=== PATIENT | male | born 1960 | race Caucasian/White ===

== ENCOUNTER 2021-07-16 15:03 | Emergency (ER) | payer MEDICARE, OTHER ==
[2021-07-16] MEDS ORDERED: Oxymetazoline 0.05% Nasal Spray 30 ML Bottle NAS ONE (15:28)
== END 2021-07-16 16:24 | disposition home or self-care (01) ==
LOC: JD.ED 15:03 → SUPCPDRO 15:03 → JD.ED 16:24
DX: R04.0 Epistaxis (principal); E78.00 Pure hypercholesterolemia, unspecified; I10 Essential (primary) hypertension; Z79.899 Other long term (current) drug therapy; Z79.82 Long term (current) use of aspirin; Z79.4 Long term (current) use of insulin; Z79.01 Long term (current) use of anticoagulants
CPT/HCPCS: 36415; 80048; 85025; 85610; 99283; A9270

== ENCOUNTER 2021-07-20 20:09 | Inpatient (IN) | payer MEDICARE, OTHER ==
[2021-07-20] MEDS ORDERED: Furosemide 40 MG/4 ML VIAL IVPUSH ONE (23:49)
[2021-07-21] MEDS: Insulin Lispro 100 Unit/ML 3 ML KwikPen SUBCUT SCH ×4 (08:03→21:07)
[2021-07-21] MEDS: Potassium Chloride 20 MEQ Tab.ER PO SCH ×2 (08:23→21:08)
[2021-07-21] MEDS: Tamsulosin 0.4 MG Cap.ER PO SCH (08:23)
[2021-07-21] MEDS: Aspirin 81 MG Tab.EC PO SCH (08:23)
[2021-07-21] MEDS ORDERED: Ondansetron 4 MG/2 ML SDV IV PRN (08:28)
[2021-07-21] MEDS ORDERED: Polyethylene Glycol 3350 Powder 17 GM Packet PO PRN (08:28)
[2021-07-21] MEDS ORDERED: Potassium Chloride 20 MEQ Tab.ER PO SCH (09:00)
[2021-07-21] MEDS ORDERED: Carvedilol 12.5 MG Tab PO SCH (09:00)
[2021-07-21] MEDS ORDERED: Furosemide 40 MG/4 ML VIAL IVPUSH ONE (10:46)
[2021-07-21] MEDS ORDERED: Benzonatate 100 MG Cap PO PRN (11:02)
[2021-07-21] MEDS ORDERED: Furosemide 40 MG/4 ML VIAL IVPUSH SCH (14:00)
[2021-07-21] MEDS ORDERED: Warfarin 5 MG Tab PO SCH (18:00)
[2021-07-21] MEDS: Albumin 25% 12.5 GM in Premix Bag 1 BAG IV SCH ×2 (18:28→19:44)
[2021-07-21] MEDS: atorvaSTATin 40 MG Tab PO SCH (21:08)
[2021-07-21] MEDS: Carvedilol 6.25 MG Tab PO SCH (21:09)
[2021-07-22] MEDS ORDERED: Furosemide 40 MG/4 ML VIAL IVPUSH SCH ×2 (06:00→09:00)
[2021-07-22] MEDS: Insulin Lispro 100 Unit/ML 3 ML KwikPen SUBCUT SCH ×4 (07:18→21:17)
[2021-07-22] MEDS: Carvedilol 6.25 MG Tab PO SCH ×2 (08:09→20:56)
[2021-07-22] MEDS: Pantoprazole 40 MG Tab.CR PO SCH (08:09)
[2021-07-22] MEDS: Potassium Chloride 20 MEQ Tab.ER PO SCH ×2 (08:09→20:57)
[2021-07-22] MEDS: Tamsulosin 0.4 MG Cap.ER PO SCH (08:09)
[2021-07-22] MEDS: Aspirin 81 MG Tab.EC PO SCH (08:09)
[2021-07-22 11:35] LABS: CORONAVIRUS COVID-19 NAA NEGATIVE (NEGATIVE)
[2021-07-22] MEDS ORDERED: Lidocaine 1% 10 ML MDV ONE (13:49)
[2021-07-22] MEDS: Acetaminophen 325 MG Tab PO PRN (17:16)
[2021-07-22] MEDS ORDERED: Warfarin 5 MG Tab PO SCH (18:00)
[2021-07-22 18:42] LABS: BORDETELLA PARAPERT IS1001 Not Detected (Not Detected)
[2021-07-22] MEDS: atorvaSTATin 40 MG Tab PO SCH (20:52)
[2021-07-22] MEDS: Enoxaparin 150 MG/1 ML Syringe SUBCUT SCH (20:57)
[2021-07-23] MEDS: Acetaminophen 325 MG Tab PO PRN ×2 (03:22→14:18)
[2021-07-23] MEDS: Insulin Lispro 100 Unit/ML 3 ML KwikPen SUBCUT SCH ×4 (07:36→21:33)
[2021-07-23] MEDS ORDERED: guaiFENesin 600 MG Tab.ER PO ONE (08:11)
[2021-07-23] MEDS: Aspirin 81 MG Tab.EC PO SCH (08:32)
[2021-07-23] MEDS: Benzonatate 100 MG Cap PO SCH ×2 (08:32→20:51)
[2021-07-23] MEDS: Carvedilol 6.25 MG Tab PO SCH ×2 (08:32→20:53)
[2021-07-23] MEDS: Potassium Chloride 20 MEQ Tab.ER PO SCH ×2 (08:32→20:52)
[2021-07-23] MEDS: Pantoprazole 40 MG Tab.CR PO SCH (08:33)
[2021-07-23] MEDS: guaiFENesin/Dextromethorphan 100-10 MG/5 ML Soln 5 ML Cup PO PRN ×4 (08:33→22:00)
[2021-07-23] MEDS: Enoxaparin 150 MG/1 ML Syringe SUBCUT SCH ×2 (08:33→20:53)
[2021-07-23] MEDS: Tamsulosin 0.4 MG Cap.ER PO SCH (08:33)
[2021-07-23] MEDS ORDERED: Furosemide 40 MG/4 ML VIAL IVPUSH ONE (14:29)
[2021-07-23] MEDS: Doxycycline 100 MG Cap PO SCH ×2 (14:48→20:51)
[2021-07-23] MEDS: Cefdinir 300 MG Cap PO SCH ×2 (14:48→20:51)
[2021-07-23] MEDS ORDERED: Warfarin 2.5 MG Tab PO ONE (18:00)
[2021-07-23] MEDS ORDERED: Furosemide 40 MG/4 ML VIAL IVPUSH SCH (20:00)
[2021-07-23] MEDS: atorvaSTATin 40 MG Tab PO SCH (20:52)
[2021-07-23] MEDS: traZODone 50 MG Tab PO PRN (22:00)
[2021-07-23] MEDS ORDERED: methylPREDNISolone Sodium Succinate 40 MG/1 ML SDV IVPUSH ONE (23:02)
[2021-07-23] MEDS: Albuterol/Ipratropium 3.0-0.5 MG/3 ML Neb Soln NEB PRN (23:31)
[2021-07-24] MEDS: guaiFENesin/Dextromethorphan 100-10 MG/5 ML Soln 5 ML Cup PO PRN ×3 (05:28→21:31)
[2021-07-24] MEDS: Pantoprazole 40 MG Tab.CR PO SCH ×2 (05:31→06:36)
[2021-07-24] MEDS ORDERED: Furosemide 40 MG/4 ML VIAL IVPUSH SCH (06:00)
[2021-07-24] MEDS: Insulin Lispro 100 Unit/ML 3 ML KwikPen SUBCUT SCH ×4 (09:16→21:32)
[2021-07-24] MEDS: Carvedilol 6.25 MG Tab PO SCH ×2 (09:20→21:11)
[2021-07-24] MEDS: Aspirin 81 MG Tab.EC PO SCH (09:21)
[2021-07-24] MEDS: Potassium Chloride 20 MEQ Tab.ER PO SCH ×2 (09:21→21:11)
[2021-07-24] MEDS: Tamsulosin 0.4 MG Cap.ER PO SCH (09:21)
[2021-07-24] MEDS: Cefdinir 300 MG Cap PO SCH ×2 (09:22→21:11)
[2021-07-24] MEDS: Benzonatate 100 MG Cap PO SCH ×2 (09:22→21:31)
[2021-07-24] MEDS: Doxycycline 100 MG Cap PO SCH ×2 (09:22→21:11)
[2021-07-24] MEDS: Albuterol/Ipratropium 3.0-0.5 MG/3 ML Neb Soln NEB PRN ×3 (09:54→18:45)
[2021-07-24] MEDS: Enoxaparin 150 MG/1 ML Syringe SUBCUT SCH (10:00)
[2021-07-24] MEDS: Furosemide 40 MG/4 ML VIAL IVPUSH SCH (13:00)
[2021-07-24] MEDS ORDERED: Bumetanide 1 MG/4 ML MDV IVPUSH SCH (14:00)
[2021-07-24] MEDS ORDERED: Warfarin 2.5 MG Tab PO ONE (18:00)
[2021-07-24] MEDS: atorvaSTATin 40 MG Tab PO SCH (21:11)
[2021-07-24] MEDS: traZODone 50 MG Tab PO PRN (21:31)
[2021-07-25] MEDS: Albuterol/Ipratropium 3.0-0.5 MG/3 ML Neb Soln NEB PRN ×2 (00:23→09:58)
[2021-07-25] MEDS: Furosemide 40 MG/4 ML VIAL IVPUSH SCH ×2 (06:43→14:35)
[2021-07-25] MEDS: Pantoprazole 40 MG Tab.CR PO SCH (06:44)
[2021-07-25] MEDS: Cefdinir 300 MG Cap PO SCH (08:02)
[2021-07-25] MEDS: Doxycycline 100 MG Cap PO SCH (08:02)
[2021-07-25] MEDS: Aspirin 81 MG Tab.EC PO SCH (08:02)
[2021-07-25] MEDS: Insulin Lispro 100 Unit/ML 3 ML KwikPen SUBCUT SCH ×2 (08:02→11:22)
[2021-07-25] MEDS: Benzonatate 100 MG Cap PO SCH (08:02)
[2021-07-25] MEDS: Carvedilol 6.25 MG Tab PO SCH (08:03)
[2021-07-25] MEDS: Potassium Chloride 20 MEQ Tab.ER PO SCH (08:03)
[2021-07-25] MEDS: Tamsulosin 0.4 MG Cap.ER PO SCH (08:03)
[2021-07-25] MEDS ORDERED: Lidocaine 1% 10 ML MDV ONE (14:09)
[2021-07-25] MEDS ORDERED: Lidocaine 1% 10 ML MDV INJECT ONE (14:15)
[2021-07-25] MEDS ORDERED: Warfarin 2.5 MG Tab PO SCH (18:00)
[2021-07-27] MEDS ORDERED: Furosemide 40 MG/4 ML VIAL IVPUSH SCH (06:00)
== END 2021-07-25 14:55 | disposition home or self-care (01) | DRG 291 ==
LOC: JD.ED 20:09 → JD.MS 07-21 00:16 → INTOOBSV 07-21 00:16 → OBSVTOIN 07-22 07:16
PROVIDERS: ADMIT Hospitalist; ATTEND Hospitalist
PROC: 0W9G3ZZ Drainage of Peritoneal Cavity, Percutaneous Approach (ICD-10-PCS; principal; 2021-07-22)
DX: I50.9 Heart failure, unspecified (principal); R09.02 Hypoxemia; I11.0 Hypertensive heart disease with heart failure; I50.43 Acute on chronic combined systolic (congestive) and diastolic (congestive) heart failure; J96.21 Acute and chronic respiratory failure with hypoxia; R18.8 Other ascites; E11.9 Type 2 diabetes mellitus without complications; B34.8 Other viral infections of unspecified site; E78.00 Pure hypercholesterolemia, unspecified; Z20.822 Contact with and (suspected) exposure to COVID-19; E78.5 Hyperlipidemia, unspecified; I48.0 Paroxysmal atrial fibrillation; N42.9 Disorder of prostate, unspecified; K59.09 Other constipation; E11.69 Type 2 diabetes mellitus with other specified complication; G47.33 Obstructive sleep apnea (adult) (pediatric); R93.429 Abnormal radiologic findings on diagnostic imaging of unspecified kidney; I08.3 Combined rheumatic disorders of mitral, aortic and tricuspid valves; Z79.01 Long term (current) use of anticoagulants; Z95.1 Presence of aortocoronary bypass graft; Z79.4 Long term (current) use of insulin; Z99.81 Dependence on supplemental oxygen; Z98.890 Other specified postprocedural states; Z79.82 Long term (current) use of aspirin; Z79.899 Other long term (current) drug therapy; Z95.810 Presence of automatic (implantable) cardiac defibrillator
CPT/HCPCS: 0241U; 36415; 51798; 71045; 71046; 74177; 76705; 76775; 80048; 80053; 82803; 82947; 83605; 83690; 83735; 83880; 84145; 85025; 85027; 85610; 87070; 87075; 87205; 87486; 87581; 87633; 87798; 89050; 93005; 93306; 94640; 94760; 94761; 96374; 99285; 93010; A9270-GY; J1650; J1815; J1940; J2920; J7620-GY; P9047